=== PATIENT | male | born 1965 | race Caucasian/White ===

== ENCOUNTER 2023-10-01 09:21 | Emergency (ER) | payer OTHER, SELFPAY ==
[2023-10-01 09:24] VITALS: BP 142/111; PULSE 106; RESP 16; TEMP 36.4; O2SAT 96; BMI 29.8
--- NOTE | 2023-10-01 09:54 | RAD_ITS ---
STUDY: X-RAY - PELVIS REASON FOR EXAM: Male, 58 years old. Pain, fall TECHNIQUE: One view of the pelvis was obtained. COMPARISON: None. FINDINGS: There is a non-specific bowel gas pattern. There are multiple calcified phleboliths. Normal bilateral iliac wings, sacroiliac joints and visualized sacrum. Normal visualized bilateral superior and inferior pubic rami. Normal pubic symphysis. Normal ischial tuberosities. Normal visualized right femoral head. There is osteoarthritic spur formation of the right acetabular rim. Normal right hip joint. Normal visualized left femoral head. Normal left acetabulum. Normal left hip joint. RAD/Pelvis 1 or 2 Views IMPRESSION: No acute abnormality is seen. Electronically Signed: Darnell Del Castillo MD at 11:16 EST ,
--- NOTE | 2023-10-01 09:54 | EKG12_ITS ---
Test Reason : SYNCOPE Blood Pressure : / mmHG Vent. Rate : 088 BPM Atrial Rate : 088 BPM P-R Int : 136 ms QRS Dur : 080 ms QT Int : 366 ms P-R-T Axes : 017 -01 032 degrees QTc Int : 442 ms Normal sinus rhythm Normal ECG Confirmed by JAREK DAVIES, LAUREN ([id number]), editor publications MCKENNA RODRIGUEZ ([id number]) on 10/02/2023 1:39:16 PM Referred By: TWILA Confirmed By:LAUREN TILLEY MD
--- NOTE | 2023-10-01 09:54 | RAD_ITS ---
STUDY: X-RAY - SACRUM/COCCYX REASON FOR EXAM: Male, 58 years old. Pain, fall TECHNIQUE: 3 view(s) of the sacrum and coccyx were obtained. COMPARISON: None. FINDINGS: Normal bilateral sacroiliac joints. Normal visualized sacral ala and fused sacral bodies. Normal sacrococcygeal junction with a normal angulation. Normal coccygeal segments. The presacral soft tissue structures are unremarkable. RAD/Sacrum-Coccyx min 2 Views IMPRESSION: Normal x-rays of the sacrum and coccyx. Electronically Signed: Darnell Del Castillo MD at 11:17 EST ,
--- NOTE | 2023-10-01 09:57 | ED.RN ---
NO OLD EKG
--- NOTE | 2023-10-01 09:58 | EDS_ITS ---
HPI History of Present Illness Chief Complaint: Fall Informant: patient Narrative Narrative: Patient is a 58-year-old male with history of psoriatic arthritis, hypertension hyperlipidemia presenting after a syncopal episode and subsequent injuries. Patient states he got up around 1230 this morning to urinate. He has been urination when he suddenly fell backwards and passed out. He hit the back of his head where the linoleum and the carpet meet in his bathroom. He also states he landed on his tailbone. His tried to help him up and apparently he passed another 2 times. He was able to get back in bed but took about 15 minutes to get himself up. He was initially his left hand was a little numb but that is since resolved. He states he had a mild headache today especially the top of the head where he struck. He states his neck is felt jammed but with Tylenol it feels better. He is not on any blood thinners. He notes he is continue to feel fuzzy today. He spoke to his daughter who is a nurse practitioner who recommend he come to the ER to be evaluated further. He has a remote history of syncope in his 20s when he was in the from standing up too fast. Never passed out before. Notes that he had some very mild cold symptoms the past few days including a very mild cough and when he had his PCP visit the other days noticed that his throat was a little red. Denies any recent medication changes. Is also complaining of pain over his tailbone from the fall. States that he has chronic pains and is not too worried about that but wanted to make sure everything was okay because of his head injury and his feeling off. Denies any chest pain or difficulty breathing. Denies any nausea, vomiting or changes bowel movements. Denies feeling sweaty or dizzy right before falling. No other complaints or concerns at this time. Reports his medications as lisinopril, HCTZ, atorvastatin, omeprazole, as needed Shon and Taljulianne (ixekizumab). Denies any swelling of his legs. Denies any history of DVT or PE. PFSH PFSH Allergy/AdvReac Type Severity Reaction Status Date / Time Penicillins Allergy Severe Anaphylaxis Verified 10/01/23 09:23 Social History Smoking Status: Current every day smoker tobacco type: cigarettes ROS ROS ED Constitutional Constitutional ED: Denies chills or fever(s) Eyes Eyes: Denies blurry vision or change in vision ENT ENT ED: Reports sore throat; Denies rhinorrhea Cardiovascular Cardiovascular: Denies chest pain Respiratory/Chest Respiratory/Chest: Reports cough; Denies dyspnea Gastrointestinal Gastrointestinal: Denies abdominal pain, constipation, nausea or vomiting Genitourinary Genitourinary ED: Denies dysuria Musculoskeletal Musculoskeletal: Reports arthralgias, back pain and neck pain Integumentary Denies rash Neurologic Neurologic: Reports headache(s); Denies paresthesias or weakness Psychiatric Psychiatric: Denies anxiety Hematologic/Lymphatic Hematologic/Lymphatic: Denies easy bleeding or easy bruising EXAM Physical Exam Const Vital Signs: 10/01/23 09:24 10/01/23 09:45 10/01/23 10:30 Temperature 97.6 F L Temperature Source Temporal Pulse Rate 106 H Pulse Rate [Lying] 90 Pulse Rate [Sitting (for 1 minute prior to obtaining)] 92 Pulse Rate [Standing (for 1 minute prior to obtaining)] 103 H Respiratory Rate 16 Respiratory Effort Normal Blood Pressure 142/111 H Blood Pressure [Lying] 147/100 H Blood Pressure [Sitting (for 1 minute prior to obtaining)] 148/107 H Blood Pressure [Standing (for 1 minute prior to obtaining)] 140/83 H Blood Pressure Mean 121 Blood Pressure Mean [Lying] 115 Blood Pressure Mean [Sitting (for 1 minute prior to obtaining)] 120 Blood Pressure Mean [Standing (for 1 minute prior to obtaining)] 102 Pulse Ox 96 Oxygen Delivery Method Room Air Room Air 10/01/23 11:17 Temperature Temperature Source Pulse Rate 90 Pulse Rate [Lying] Pulse Rate [Sitting (for 1 minute prior to obtaining)] Pulse Rate [Standing (for 1 minute prior to obtaining)] Respiratory Rate 16 Respiratory Effort Blood Pressure 139/80 H Blood Pressure [Lying] Blood Pressure [Sitting (for 1 minute prior to obtaining)] Blood Pressure [Standing (for 1 minute prior to obtaining)] Blood Pressure Mean 99 Blood Pressure Mean [Lying] Blood Pressure Mean [Sitting (for 1 minute prior to obtaining)] Blood Pressure Mean [Standing (for 1 minute prior to obtaining)] Pulse Ox 99 Oxygen Delivery Method Room Air Positive well nourished and well developed General Appearance ED: well developed and NAD HEENT Reports moist mucous membranes HEENT Narrative: Scarring of the right tympanic membrane?patient reports 2 prior surgeries. Normal left tympanic membrane. No hemotympanum appreciated. Mild injection of the posterior oropharynx present. Normal tonsils. Eyes PERRL and EOMs intact bilaterally Neck supple and no JVD Neck Narrative: No midline tenderness. Normal range of motion. Chest Wall inspection of chest normal and palpation of chest normal Resp normal respiratory effort and clear to auscultation bilaterally Auscultation: Negative for wheezes Cardio regular rate, regular rhythm and no murmurs GI normal to inspection, nondistended, normoactive bowel sounds and non-tender Palpation: Negative for tender or guarding Back/Spine Back/Spine Narrative: Tenderness to palpation over the sacrum diffusely Cervical Spine: Negative for cervical spine tenderness Thoracic Spine / Upper Back: Negative for thoracic spinal tenderness or paraspinal muscle tenderness Lumbar Spine / Lower Back: Negative for lumbar spinal tenderness Extremity normal to inspection General Extremety ED: Negative for edema General Extremity: Negative for edema Neuro oriented x3 Sensorium / Orientation: alert Motor Exam: Negative for general weakness Psych mental status grossly normal Skin no rashes or lesions noted and no wounds MDM MDM MDM Narrative Medical decision making narrative: Patient evaluated for syncope as well as a subsequent head injury and tailbone pain. Differential includes cardiac arrhythmia, pulmonary emboli, post micturition/vasovagal syncope as well as trauma. CT of the brain and C-spine as well as imaging of the sacrum and pelvis obtained and did not show any acute process. X-rays are reviewed by myself as well as radiology. Chest x-ray shows hyperinflation with no acute infiltrate. Patient does have an elevated D-dimer so CTA is ordered. This is elevated in addition patient has been having a couple months of increased dyspnea on exertion. Will obtain a CTA to rule out pulmonary emboli. Patient has a mild leukocytosis of 12.4 which is nonspecific. Viral swab for COVID and influenza is negative. No obvious signs of an acute infection. High since he troponin is normal at 7. His TSH is also normal. CTA does not show any acute process. Patient's mildly tachycardic upon arrival but this resolves in the ER without any intervention. Patient will be discharged home as he is only had the 1 episode of syncope and has largely negative cardiac workup at this time. He is agreeable. No signs of trauma or injury associated with his fall. Counseled that given his symptoms on exertion and syncope he should follow-up with cardiology as well as pulmonology. He has not had any pulmonary function test done in years especially since his symptoms of started and they did seem to start after having COVID so he could have some type of undiagnosed restrictive or obstructive lung disease at this point. Patient and verbalized agreement understand this plan. Discharged home in stable condition. Ambulates easily out of the emergency room. Lab Data Attestation: I reviewed the patient's lab results. Labs: Laboratory Results - last 24 hr 10/01/23 10:20 WBC 12.4 H RBC 5.45 Hgb 16.4 Hct 48.9 MCV 89.7 MCH 30.1 MCHC 33.5 RDW Std Deviation 39.3 RDW Coeff of Jacob 12.0 Plt Count 320 MPV 8.8 D-Dimer Quant (PE/DVT) 1.94 H* Sodium 140 Potassium 3.9 Chloride 104 Carbon Dioxide 28.0 Anion Gap 8 BUN 13 Creatinine 0.98 Estim Creat Clear Calc 101.02 Est GFR (MDRD) Af Amer 100 Est GFR (MDRD) Non-Af 83 BUN/Creatinine Ratio 13.2 Glucose 114 H Calcium 9.8 Troponin I High Sens 7 TSH 0.71 Radiography Chest X-Ray - ED: 1 View, Read by ED Physician, Read by Radiologist and No Acute Disease Diagnostic Testing: Clinical Impression(s) from Imaging Studies Pelvis X-Ray 10/01/23 09:54 IMPRESSION: No acute abnormality is seen. Electronically Signed: Darnell Del Castillo MD at 11:16 EST , Sacrum and Coccyx X-Ray 10/01/23 09:54 IMPRESSION: Normal x-rays of the sacrum and coccyx. Electronically Signed: Darnell Del Castillo MD at 11:17 EST , Brain CT 10/01/23 10:50 IMPRESSION: Normal unenhanced CT scan of the brain. Electronically Signed: Darnell Del Castillo MD at 11:11 EST , Cervical Spine CT 10/01/23 10:50 IMPRESSION: Multilevel degenerative changes, as described above. Electronically Signed: Darnell Del Castillo MD at 11:14 EST , Chest X-Ray 10/01/23 10:55 IMPRESSION: Hyperinflation. The lungs are clear. Electronically Signed: Darnell Del Castillo MD at 11:16 EST , Chest CTA 10/01/23 12:06 IMPRESSION: Normal CTA chest examination, without a demonstrated pulmonary embolism or arterial dissection. Electronically Signed: Darnell Del Castillo MD at 12:36 EST , Rhythm Strip Rhythm Strip: Sinus Rhythm Rate: 88 Ectopy: None EKG Initial EKG: Attestation: I personally reviewed and interpreted this EKG as follows: Interpretation: Sinus Rhythm Comments: Normal sinus rhythm at a rate of 88 bpm Normal axis Normal intervals Normal ST segments Discharge Plan Triage Chief Complaint: Fall ED Provider: Nichol Gonzales Dx/Rx/DC Orders Clinical Impression: BARTH (dyspnea on exertion), CHI (closed head injury), Syncope and collapse, Contusion of sacrum Instructions: ED Coccyx or Sacrum Contusion, ED Dizziness, Uncertain Cause, ED Fainting, Uncertain Cause Primary Care Provider: Caterina Mandel Referrals: Brenna Kwon MD [Med Staff - Active Staff] - As soon as possible Brown,Jesús, DO [Med Staff - Active Staff] - As soon as possible Caterina Mandel, [employer] [Primary Care Provider] - Activity Restrictions/Additional Instructions: The cause of your syncopal episode last night is not clear however at this time everything looks normal and I believe you are safe to follow-up. Begin referral for cardiology as well as pulmonology to follow-up with given your syncope as well as your continued shortness of breath on exertion. Disposition Disposition: Home, Self Care Discharge Date/Time: 10/01/23 13:57
[2023-10-01 10:30] VITALS: BP 140/83; BP 147/100; BP 148/107; PULSE 103; PULSE 90; PULSE 92
[2023-10-01 10:34] LABS: Hematocrit 48.9 % (40-54); Hemoglobin 16.4 g/dL (13.0-16.5); Mean Corp Hgb Conc 33.5 g/dL (32-36); Mean Corpuscular Hgb 30.1 pg (27.0-32.0); Mean Corpuscular Volume 89.7 fL (80-94); Mean Platelet Vol. 8.8 fl (6.2-12.0); Platelet Count 320 K/mm3 (150-450); RBC Distribution Width SD 39.3 fl (35.1-43.9); Red Blood Count 5.45 M/mm3 (4.6-6.2); White Blood Count 12.4 K/mm3 (4.4-11.0)
[2023-10-01 10:47] LABS: D-Dimer Quantitative (DVT/PE) 1.94 FEU/ug/m (0.27-0.49)
--- NOTE | 2023-10-01 10:50 | CT_ITS ---
STUDY: CT BRAIN WITHOUT CONTRAST REASON FOR EXAM: Male, 58 years old. Head trauma RADIATION DOSAGE (If Supplied By Facility): CTDIvol = ( 44.99 ) mGy, DLP = ( 914.22 ) mGycm TECHNIQUE: Transaxial CT imaging of the brain was performed without administration of intravenous contrast material. Individualized dose optimization techniques were used for this CT. COMPARISON: No relevant priors. FINDINGS: Normal soft tissue structures. Normal calvarium. Normal size ventricles and extra-axial spaces for the patient''s age. Normal white matter tracts of the cerebral hemispheres. Normal basal ganglia and thalami. Normal brainstem. Normal cerebellum. There is no intracranial hemorrhage. There are no findings of an acute ischemic infarction. Normal visualized paranasal sinuses. CT/Brain/Head without Contrast IMPRESSION: Normal unenhanced CT scan of the brain. Electronically Signed: Darnell Del Castillo MD at 11:11 EST ,
--- NOTE | 2023-10-01 10:50 | CT_ITS ---
STUDY: CT CERVICAL SPINE WITHOUT CONTRAST REASON FOR EXAM: Male, 58 years old. Trauma, pain RADIATION DOSAGE (If Supplied By Facility): CTDIvol = ( 26.33 ) mGy, DLP = ( 652.72 ) mGycm TECHNIQUE: High resolution transaxial imaging was performed without contrast material. Sagittal and coronal images were reconstructed. Individualized dose optimization techniques were used for this CT. COMPARISON: None FINDINGS: Normal craniovertebral junction. Normal anterior atlantoaxial articulation. Normal odontoid process. Normal cervical lordosis. Normal vertebral bodies and posterior osseous elements. C2-3: Normal endplates. Normal disc height and morphology. Normal central canal and intervertebral neuroforamina. C3-4: Normal endplates. Normal disc height and morphology. Normal central canal and intervertebral neuroforamina. C4-5: Mild degree of disc space narrowing. Spondylosis. Uncovertebral arthrosis. Moderate degree of right neural foraminal stenosis. C5-6: Mild degree of disc space narrowing. Uncovertebral arthrosis. Facet joint osteoarthritis and hypertrophy worse on the right side. Moderate degree of right neural foraminal stenosis. C6-7: Moderate degree of broad disc space narrowing. Uncovertebral arthrosis. Bilateral neural foraminal stenosis worse on the right side. C7-T1: Normal endplates. Normal disc height and morphology. Normal central canal and intervertebral neuroforamina. Normal visualized soft tissue structures. CT/Spine Cervical without Contras IMPRESSION: Multilevel degenerative changes, as described above. Electronically Signed: Darnell Del Castillo MD at 11:14 EST ,
--- NOTE | 2023-10-01 10:55 | RAD_ITS ---
STUDY: X-RAY CHEST REASON FOR EXAM: Male, 58 years old. Syncope TECHNIQUE: Single AP portable view of the chest. COMPARISON: None. FINDINGS: EKG electrodes are seen. Hyperinflation. The lungs are clear. There is no demonstrated pleural abnormality. Normal size heart. Normal mediastinum and vincenzo. Normal visualized pulmonary arteries. There is atherosclerotic tortuosity of the aortic arch and descending thoracic aorta. There are diffuse degenerative changes of the visualized thoracic spine. Normal visualized ribs, clavicles, and shoulders. There is no demonstrated abnormality of the visualized soft tissue structures of the upper abdomen. RAD/Chest 1 View (Portable) IMPRESSION: Hyperinflation. The lungs are clear. Electronically Signed: Darnell Del Castillo MD at 11:16 EST ,
[2023-10-01 11:03] LABS: Anion Gap 8 (5-15); BUN 13 mg/dL (7-18); BUN/Creat Ratio 13.2 RATIO (10-20); Calcium,Total 9.8 mg/dL (8.5-10.1); Chloride 104 mmol/L (98-107); Creatinine, Serum 0.98 mg/dL (0.70-1.30); EST Glomerular Filtration Rate 83 mL/min (>60); Est Glom Filt Rate - Afr Amer 100 mL/min (>60); Estimated Creatinine Clearance 101.02 ml/min; Glucose 114 mg/dL (74-106); Potassium 3.9 mmol/L (3.5-5.1); Sodium Level 140 mmol/L (136-145); Thyroid Stim Hormone (TSH) 0.71 uIU/mL (0.358-3.74); Troponin-I HS 7 pg/mL (3.0-78.0)
[2023-10-01 11:17] VITALS: BP 139/80; PULSE 90; RESP 16; O2SAT 99
--- NOTE | 2023-10-01 12:06 | CT_ITS ---
STUDY: CTA CHEST REASON FOR EXAM: Male, 58 years old. Elevated dimer RADIATION DOSAGE (If Supplied By Facility): CTDIvol = ( 15.87 ) mGy, DLP = ( 617.61 ) mGycm TECHNIQUE: The examination was performed with the intravenous administration of IV 100mL [id number]-[id number]. Post-processing of the angiographic images was performed, with multiplanar reformation and 3D reconstruction. Individualized dose optimization techniques were used for this CT. COMPARISON: Comparison is made with prior chest radiograph done earlier today. FINDINGS: Normal enhancement of the main pulmonary artery and right and left pulmonary arteries. Normal enhancement of the bilateral peripheral pulmonary arteries. There is no demonstrated pulmonary embolism. Normal thoracic aorta and visualized great vessels. There is no demonstrated aortic dissection. Normal heart and pericardium. Normal mediastinum. Normal hilar regions. Normal visualized trachea and bronchi. The lungs are well expanded. Normal pulmonary parenchyma. Normal pleura. Normal chest wall structures. Normal osseous structures. Normal visualized upper abdomen. CT/CTA Chest W/WO Contrast IMPRESSION: Normal CTA chest examination, without a demonstrated pulmonary embolism or arterial dissection. Electronically Signed: Darnell Del Castillo MD at 12:36 EST ,
== END 2023-10-01 13:57 | disposition home or self-care (01) ==
PROVIDERS: Emergency Provider Emergency Medicine; PCP Nurse Practitioner Family; Visit Provider Emergency Medicine
DX: S09.90XA Unspecified injury of head, initial encounter (principal); S30.0XXA Contusion of lower back and pelvis, initial encounter; W01.198A Fall on same level from slipping, tripping and stumbling with subsequent striking against other object, initial encounter; Y92.002 Bathroom of unspecified non-institutional (private) residence as the place of occurrence of the external cause; R55 Syncope and collapse; R06.09 Other forms of dyspnea; R00.0 Tachycardia, unspecified; I10 Essential (primary) hypertension; E78.5 Hyperlipidemia, unspecified; Z11.52 Encounter for screening for COVID-19; F17.210 Nicotine dependence, cigarettes, uncomplicated
CPT/HCPCS: 70450; 71045; 71275; 72125; 72170; 72220; 80048; 84443; 84484; 85027; 85379; 87428; 93005; 99284; Q9967; A4216

== ENCOUNTER → 2025-07-20 | Outpatient (CLI) | payer MEDICARE, SELFPAY ==
[2025-07-20 19:21] LABS: Anion Gap 12 (5-15); BUN 11 mg/dL (4-19); BUN/Creat Ratio 12.6 RATIO (10-20); Calcium,Total 9.4 mg/dL (7.6-11.0); Carbon Dioxide 25.1 mmol/L (21.0-32.0); Chloride 102 mmol/L (98-108); Glucose 97 mg/dL (70-99); Potassium 3.6 mmol/L (3.3-5.1)
== END | disposition home or self-care (01) ==
LOC: VSLAB 11:51
PROVIDERS: PCP Nurse Practitioner Family
DX: I10 Essential (primary) hypertension (principal)
CPT/HCPCS: 36415; 80048

== ENCOUNTER → 2025-08-03 | Outpatient (CLI) | payer MEDICARE, SELFPAY ==
[2025-08-03 12:31] LABS: Anion Gap 12 (5-15); BUN 15 mg/dL (4-19); BUN/Creat Ratio 18.2 RATIO (10-20); Calcium,Total 9.5 mg/dL (7.6-11.0); Carbon Dioxide 23.9 mmol/L (21.0-32.0); Chloride 102 mmol/L (98-108); Glucose 109 mg/dL (70-99); Potassium 3.8 mmol/L (3.3-5.1)
== END | disposition home or self-care (01) ==
LOC: VSLAB 10:00
PROVIDERS: PCP Nurse Practitioner Family
DX: I10 Essential (primary) hypertension (principal)
CPT/HCPCS: 36415; 80048